=== PATIENT | female | born 1945 | race Caucasian/White ===

== ENCOUNTER → 2021-06-02 | Outpatient (CLI) | payer MEDICAID, MEDICARE ==
[~2021-06-02] MED LIST: FAMO40TA3 PO; HYDR12.55 PO; LISI20TA33 PO; METO100T5 PO; NORV5TAB PO; NOXI1TAB PO
== END ==
LOC: M WHC 13:51
PROVIDERS: ATTEND Family Medicine
DX: R92.2 Inconclusive mammogram (principal)
CPT/HCPCS: 76642; 77065; G0279

== ENCOUNTER → 2021-06-16 | Outpatient (CLI) | payer MEDICARE ==
[2021-06-16 15:55] VITALS: BP 132/68
--- NOTE | 2021-06-16 16:24 | REP ---
INDICATION: N64.89 LT BREAST DENSITY,POST US GUIDED BIOPSY. COMPARISON: Mammogram 05/13/2021, 06/02/2021, ultrasound 06/02/2021. TECHNIQUE: Following ultrasound-guided biopsy of a nodule in the left breast, mammographic images of the left breast are performed. FINDINGS: FINDINGS: At the site of the nodule in the inferolateral left breast there is focal air density and the biopsy is not currently visualized, indicating it has been essentially removed via the biopsy. The biopsy marking clip is seen more medially and slightly more posteriorly, approximately 4.6 cm from the biopsy site. IMPRESSION: Successful ultrasound-guided biopsy of nodule in the lateral left breast. The biopsy clip is deployed approximately 4.6 cm medial to the biopsy site. RECOMMENDATION: Clinical follow-up. <Electronically signed by Sherwin Garber > 06/16/21 [id number]
--- NOTE | 2021-06-16 17:19 | REP ---
INDICATION: N64.89 LT BREAST DENSITY,US GUIDED BIOPSY. COMPARISON: None. TECHNIQUE: The procedure was performed by YANCI Blackburn, under the direct supervision of Dr. Garber. The risks and benefits of the procedure were explained to the patient and an informed consent was obtained both verbally and written. Directly prior to the start of the procedure a formal time-out was completed in the procedure room. FINDINGS: Using ultrasound guidance the left breast breast nodule was localized. The skin was prepped and draped in a sterile fashion. Thirteen mL of buffered lidocaine was used as a local anesthetic. Using ultrasound guidance a 13 gauge vacuum assisted mammotome biopsy system was inserted and advanced into the left breast mass. Five core biopsy specimens were obtained and sent to pathology for further analysis. A shape 4 marker clip was placed at the biopsy site. The patient tolerated the procedure well and there were no immediate complications. After the appropriate amount of monitored convalescence the patient was discharged from the department. IMPRESSION: 1. Ultrasound-guided left breast biopsy and micro clip placement. <Electronically signed by Kayla Mccord > 06/16/21 [id number] <Electronically signed by Sherwin Garber > 06/16/21 [id number]
== END ==
LOC: M WHCPRO 06:31
PROVIDERS: ATTEND Family Medicine
DX: N63.21 Unspecified lump in the left breast, upper outer quadrant (principal)

== ENCOUNTER → 2023-01-26 | Outpatient (CLI) | payer OTHER ==
[~2023-01-26] MED LIST changes: +ALBU8.5H INH; +HOME MED LIST COMPLETE! XX SCH; +HYDR-3490 PO; +LIDOCAINE 1% MDV 20ML VIAL As Ordered ONE; +VITA30004 PO
[2023-01-26 09:00] LABS: MEAN CORPUSCULAR HEMOGLOBIN 28.2 pg (27.0-33.0); MEAN CORPUSCULAR HGB CONC 31.7 g/dl (32.0-36.5); MEAN CORPUSCULAR VOLUME 88.9 fl (80.0-96.0); PLATELET COUNT, AUTOMATED 251 10^3/uL (150-450); RED BLOOD COUNT 4.61 10^6/uL (4.00-5.40); WHITE BLOOD COUNT 12.9 10^3/uL (4.0-10.0)
[2023-01-26 09:30] LABS: INR 0.91; PROTHROMBIN TIME 12.4 SECONDS (12.5-14.5)
[2023-01-26 11:58] VITALS: BP 144/64
== END ==
LOC: M IRPRO 08:18
PROVIDERS: ATTEND Internal Medicine Pulmonary Disease
DX: C34.32 Malignant neoplasm of lower lobe, left bronchus or lung (principal)

== ENCOUNTER → 2023-02-09 | Outpatient (CLI) | payer OTHER ==
[~2023-02-09] MED LIST changes: +FLUT1BLS8; -HOME MED LIST COMPLETE! XX SCH; -LIDOCAINE 1% MDV 20ML VIAL As Ordered ONE; +LORA1TAB4 PO; +LORA2CON5 PO; +MEDR4PAK PO
== END ==
LOC: M ONCR 13:35
PROVIDERS: ATTEND General Practice
DX: C34.32 Malignant neoplasm of lower lobe, left bronchus or lung (principal); R91.8 Other nonspecific abnormal finding of lung field; J44.9 Chronic obstructive pulmonary disease, unspecified; I10 Essential (primary) hypertension; K21.9 Gastro-esophageal reflux disease without esophagitis; Z79.51 Long term (current) use of inhaled steroids; Z79.899 Other long term (current) drug therapy; Z80.1 Family history of malignant neoplasm of trachea, bronchus and lung; Z80.3 Family history of malignant neoplasm of breast; Z82.49 Family history of ischemic heart disease and other diseases of the circulatory system; Z87.891 Personal history of nicotine dependence; Z88.5 Allergy status to narcotic agent; Z98.51 Tubal ligation status

== ENCOUNTER → 2023-02-28 | Outpatient (CLI) | payer OTHER ==
[~2023-02-28] MED LIST changes: +LORA1TAB23 PO; -LORA1TAB4 PO; +PRED20TA PO
== END ==
LOC: M PLARAD 14:17
PROVIDERS: ATTEND Internal Medicine Pulmonary Disease
DX: C34.32 Malignant neoplasm of lower lobe, left bronchus or lung (principal)
CPT/HCPCS: 78815; A9552

== ENCOUNTER → 2023-03-02 | Outpatient (CLI) | payer OTHER | LOC: M ONCR 12:55 | PROVIDERS: ATTEND General Practice | DX: C34.32 Malignant neoplasm of lower lobe, left bronchus or lung (principal); C34.31 Malignant neoplasm of lower lobe, right bronchus or lung ==

== ENCOUNTER → 2023-03-07 | Outpatient (CLI) | payer OTHER ==
[~2023-03-07] MED LIST changes: +PROHANCE 279.3MG/ML 5ML VIAL ONE
== END ==
LOC: M PLAIMG 09:31
PROVIDERS: ATTEND Internal Medicine Medical Oncology
DX: C34.90 Malignant neoplasm of unspecified part of unspecified bronchus or lung (principal)
CPT/HCPCS: 70553; A9576

== ENCOUNTER 2023-03-10 10:28 | Outpatient (RCR) | payer MEDICARE, OTHER ==
[~2023-03-10 10:28] MED LIST changes: -PROHANCE 279.3MG/ML 5ML VIAL ONE
[2023-03-10] MEDS ORDERED: BENZ200C70 PO (10:48)
[2023-03-11] MEDS ORDERED: GUAI400T9 PO (13:40)
[2023-03-30] MEDS ORDERED: MAGN400T2 PO (09:44)
== END 2023-03-30 ==
LOC: M ONCR 10:28
PROVIDERS: ATTEND General Practice
DX: C34.32 Malignant neoplasm of lower lobe, left bronchus or lung (principal)

== ENCOUNTER → 2023-03-24 | Outpatient (CLI) | payer OTHER ==
[~2023-03-24] MED LIST changes: +ATROPINE SULF 1MG/10ML SYRINGE As Ordered ONE; +BENZ200C70 PO; +GUAI400T9 PO; +LIDOCAINE 1% MDV 20ML VIAL As Ordered ONE; +MIDAZOLAM INJ 2MG/2ML VIAL As Ordered ONE; +NS 1,000 ML IV SCH; +ceFAZolin 2 GM/D5W 50 ML IV BAG As Ordered ONE; +ceFAZolin SOD 2 GM in IV 1 EA IV ONE; +diphenhydrAMINE 50MG/ML VIAL As Ordered ONE; +fentaNYL 100 MCG/2 ML INJECTION As Ordered ONE
[2023-03-24 15:00] VITALS: BP 137/60
== END ==
LOC: M IRPRO 10:25
PROVIDERS: ATTEND Internal Medicine Medical Oncology
DX: C34.90 Malignant neoplasm of unspecified part of unspecified bronchus or lung (principal)
CPT/HCPCS: 36561; 99152; 99153; C1769; C1788; C1894; J0690; J2250; J3010

== ENCOUNTER 2023-04-04 13:48 | Inpatient (IN) | payer MEDICARE, OTHER ==
[~2023-04-04] VITALS: Ht 152.4 cm; Wt 90.2 kg
[~2023-04-04 13:48] MED LIST changes: -ATROPINE SULF 1MG/10ML SYRINGE As Ordered ONE; -LIDOCAINE 1% MDV 20ML VIAL As Ordered ONE; +MAGN400T2 PO; -MIDAZOLAM INJ 2MG/2ML VIAL As Ordered ONE; -NS 1,000 ML IV SCH; -ceFAZolin 2 GM/D5W 50 ML IV BAG As Ordered ONE; -ceFAZolin SOD 2 GM in IV 1 EA IV ONE; -diphenhydrAMINE 50MG/ML VIAL As Ordered ONE; -fentaNYL 100 MCG/2 ML INJECTION As Ordered ONE
[2023-04-04 14:46] LABS: BASO # 0.1 10^3/uL (0.0-0.2); BASO % 0.9 % (0.0-1.0); EOS % 0.3 % (0.0-3.0); HEMATOCRIT 35.6 % (36.0-47.0); HEMOGLOBIN 11.7 g/dl (12.0-15.5); LYMPH # 1.3 10^3/uL (1.5-5.0); LYMPH % 10.1 % (24.0-44.0); MEAN CORPUSCULAR HEMOGLOBIN 27.4 pg (27.0-33.0); MEAN CORPUSCULAR HGB CONC 32.9 g/dl (32.0-36.5); MEAN CORPUSCULAR VOLUME 83.4 fl (80.0-96.0); MONO % 0.2 % (2.0-8.0); NEUTROPHILS # 10.8 10^3/uL (1.5-8.5); PLATELET COUNT, AUTOMATED 162 10^3/uL (150-450); RED BLOOD COUNT 4.27 10^6/uL (4.00-5.40); WHITE BLOOD COUNT 12.8 10^3/uL (4.0-10.0)
[2023-04-04 15:13] LABS: ALBUMIN 2.1 G/DL (3.2-5.2); BILIRUBIN,DIRECT 0.5 MG/DL (<0.4); BILIRUBIN,TOTAL 1.1 MG/DL (0.3-1.2); CALCIUM LEVEL 7.3 MG/DL (8.3-10.6); CREATININE FOR GFR 1.33 MG/DL (0.55-1.30); GLOMERULAR FILTRATION RATE 41.1 (>39); MAGNESIUM LEVEL 1.1 MG/DL (1.8-2.4); POTASSIUM SERUM 3.9 MMOL/L (3.5-5.1); TOTAL PROTEIN 4.8 G/DL (5.7-8.2)
[2023-04-04 15:15] LABS: THYROID STIMULATING HORMONE 5.954 uIU/ML (0.55-4.78)
[2023-04-04] MEDS ORDERED: NS 500 ML IV ONE ×2 (15:15→22:45)
[2023-04-04 15:16] LABS: MB/CK RELATIVE INDEX 3.33 (< OR =4)
[2023-04-04] MEDS: METOPROLOL 5 MG/5 ML VIAL IV SCH ×5 (15:17→19:00)
[2023-04-04 15:42] LABS: RSV AMPLIFICATION NEGATIVE (NEGATIVE)
[2023-04-04] MEDS ORDERED: NS 1,900 ML in IV 1 EA IV ONE (15:55)
[2023-04-04] MEDS ORDERED: ISOVUE-370 76% 100ML VIAL As Ordered ONE (16:01)
[2023-04-04] MEDS: MAG SULF 1GM/100ML (MAG RUN) 1 GM in IV 1 EA IV SCH ×3 (16:31→18:28)
[2023-04-04] MEDS ORDERED: PIPERACILLIN/TAZOBACTAM SOD 4.5 GM in D5W MINI-BAG PLUS 50 ML IV ONE (17:00)
[2023-04-04] MEDS ORDERED: PANTOPRAZOLE 40MG VIAL IV ONE (17:40)
[2023-04-04] MEDS: fentaNYL 100 MCG/2 ML INJECTION IV PRN ×2 (17:45→20:01)
[2023-04-04] MEDS ORDERED: DIGOXIN INJ 0.5 MG/2 ML AMP IV ONE (19:05)
[2023-04-04] MEDS ORDERED: MAGN400T33 PO (21:14)
[2023-04-04] MEDS ORDERED: FLUT1BLS8 INH (21:14)
[2023-04-04] MEDS ORDERED: PRED20TA PO (21:14)
[2023-04-04] MEDS ORDERED: HOME MED LIST COMPLETE! XX SCH (21:15)
[2023-04-04 21:30] VITALS: BP 125/72; TEMP 97.6; O2SAT 95
[2023-04-04] MEDS ORDERED: METOCLOPRAMIDE INJ 10MG/2ML VIAL IV ONE (21:45)
[2023-04-04] MEDS ORDERED: dilTIAZem 25MG/5ML VIAL IV ONE (21:45)
[2023-04-04] MEDS ORDERED: HYDROMORPHONE HCL 0.5 MG/ 0.5 ML SYRINGE IV PRN (21:45)
[2023-04-04] MEDS: NS 1,000 ML IV SCH (22:04)
[2023-04-04] MEDS: metroNIDAZOLE 500 MG in IV 1 EA IV SCH (22:08)
[2023-04-04 22:13] LABS: PROTHROMBIN TIME 13.4 SECONDS (12.5-14.5)
[2023-04-04 22:14] LABS: PARTIAL THROMBOPLASTIN TIME 25.8 SECONDS (24.8-34.2)
[2023-04-04] MEDS ORDERED: diltiaZEM 125 MG in NS 100 ML IV SCH (22:15)
[2023-04-04 22:27] LABS: CK-MB VALUE MASS 3.1 NG/ML (<3.6)
[2023-04-04 22:28] LABS: MB/CK RELATIVE INDEX 11.07 (< OR =4)
[2023-04-04] MEDS ORDERED: ALBUTEROL 90 MCG/ACT 8GM HFA INHALER INH PRN (22:40)
[2023-04-04] MEDS: cefTRIAXone SOD 1 GM in D5W MINI-BAG PLUS 50 ML IV SCH (23:53)
[2023-04-05] VITALS (14 sets, daily range): BP systolic 104–142; BP diastolic 53–78; TEMP 96.5–98.9; O2SAT 90–95
[2023-04-05] MEDS: IPRATROPIUM 0.5MG/ALBUTEROL 2.5MG INH SOL UD 3ML (DUONEB) NEB SCH ×4 (01:03→19:00)
[2023-04-05] MEDS ORDERED: diltiaZEM 125 MG in NS 100 ML IV SCH ×2 (04:45→05:05)
[2023-04-05] MEDS: NS 1,000 ML IV SCH ×2 (04:49→18:18)
[2023-04-05] MEDS: diltiaZEM 125 MG in NS 100 ML IV SCH ×2 (05:00→08:17)
[2023-04-05] MEDS ORDERED: DIGOXIN INJ 0.5 MG/2 ML AMP IV ONE (05:20)
[2023-04-05] MEDS: metroNIDAZOLE 500 MG in IV 1 EA IV SCH ×3 (05:37→21:59)
[2023-04-05 05:43] LABS: CALCIUM LEVEL 7.1 MG/DL (8.3-10.6); CREATININE FOR GFR 1.07 MG/DL (0.55-1.30); GLOMERULAR FILTRATION RATE 52.8 (>39); POTASSIUM SERUM 3.9 MMOL/L (3.5-5.1)
[2023-04-05 07:39] LABS: MAGNESIUM LEVEL 1.6 MG/DL (1.8-2.4)
[2023-04-05 07:44] LABS: FREE T4 1.17 NG/DL (0.89-1.76)
[2023-04-05] MEDS ORDERED: NS 1,000 ML IV ONE (08:00)
[2023-04-05] MEDS: MAG SULF 1GM/100ML (MAG RUN) 1 GM in IV 1 EA IV SCH ×2 (08:05→09:56)
[2023-04-05 08:20] LABS: HEMATOCRIT 31.6 % (36.0-47.0); HEMOGLOBIN 10.3 g/dl (12.0-15.5)
[2023-04-05] MEDS ORDERED: methylPREDNISolone 40MG 1ML VIAL IV SCH (09:00)
[2023-04-05] MEDS: METOPROLOL TART 50 MG TAB PO SCH ×2 (10:08→20:18)
[2023-04-05] MEDS: BENZONATATE 100MG CAPSULE PO SCH ×3 (12:11→20:18)
[2023-04-05] MEDS ORDERED: DIGOXIN 0.25 MG TAB PO ONE (12:20)
[2023-04-05 14:02] LABS: C REACTIVE PROTEIN QUANTITATIV 10.7 MG/DL (<1.0)
[2023-04-05 14:15] LABS: HEMATOCRIT 32.8 % (36.0-47.0); HEMOGLOBIN 10.8 g/dl (12.0-15.5)
[2023-04-05] MEDS ORDERED: DIGOXIN INJ 0.5 MG/2 ML AMP IV STA (18:11)
[2023-04-05] MEDS ORDERED: MOM 30ML SUSPENSION UDC PO ONE (18:25)
[2023-04-05 18:58] LABS: ALBUMIN 2.2 G/DL (3.2-5.2); BILIRUBIN,TOTAL 0.6 MG/DL (0.3-1.2); CALCIUM LEVEL 7.7 MG/DL (8.3-10.6); CREATININE FOR GFR 1.13 MG/DL (0.55-1.30); GLOMERULAR FILTRATION RATE 49.6 (>39); POTASSIUM SERUM 4.2 MMOL/L (3.5-5.1); TOTAL PROTEIN 5.1 G/DL (5.7-8.2)
[2023-04-05] MEDS ORDERED: POLYETHYLENE GLYCOL (MIRALAX) 238GM BOTTLE PO ONE (19:00)
[2023-04-05 20:12] LABS: HEMATOCRIT 29.5 % (36.0-47.0); HEMOGLOBIN 9.7 g/dl (12.0-15.5)
[2023-04-05] MEDS ORDERED: METOPROLOL TARTRATE 100MG TAB PO SCH (21:00)
[2023-04-05] MEDS: cefTRIAXone SOD 1 GM in D5W MINI-BAG PLUS 50 ML IV SCH (23:25)
[2023-04-06] VITALS (11 sets, daily range): BP systolic 124–154; BP diastolic 58–93; TEMP 96.8–97.4; O2SAT 94–97
[2023-04-06] MEDS: IPRATROPIUM 0.5MG/ALBUTEROL 2.5MG INH SOL UD 3ML (DUONEB) NEB SCH ×2 (00:13→08:12)
[2023-04-06] MEDS: NS 1,000 ML IV SCH ×2 (04:45→14:44)
[2023-04-06] MEDS: POLYETHYLENE GLYCOL (MIRALAX) 238GM BOTTLE PO ONE ×2 (05:31→06:04)
[2023-04-06] MEDS: metroNIDAZOLE 500 MG in IV 1 EA IV SCH (05:32)
[2023-04-06 06:41] LABS: HEMATOCRIT 28.2 % (36.0-47.0); HEMOGLOBIN 9.3 g/dl (12.0-15.5); MEAN CORPUSCULAR HEMOGLOBIN 27.4 pg (27.0-33.0); MEAN CORPUSCULAR VOLUME 83.2 fl (80.0-96.0); PLATELET COUNT, AUTOMATED 108 10^3/uL (150-450); RED BLOOD COUNT 3.39 10^6/uL (4.00-5.40); WHITE BLOOD COUNT 2.8 10^3/uL (4.0-10.0)
[2023-04-06] MEDS: BENZONATATE 100MG CAPSULE PO SCH ×3 (08:31→20:56)
[2023-04-06] MEDS: METOPROLOL TART 50 MG TAB PO SCH ×3 (08:32→18:51)
[2023-04-06] MEDS: DIGOXIN 0.125 MG TAB PO SCH (08:32)
[2023-04-06] MEDS: predniSONE 20 MG TAB PO SCH (08:32)
[2023-04-06] MEDS ORDERED: METOPROLOL 5 MG/5 ML VIAL IV STA (08:37)
[2023-04-06] MEDS ORDERED: DIGOXIN 0.25 MG TAB PO SCH (09:00)
[2023-04-06] MEDS ORDERED: IPRATROPIUM 0.5MG/ALBUTEROL 2.5MG INH SOL UD 3ML (DUONEB) NEB PRN (10:00)
[2023-04-06 10:08] LABS: HEMATOCRIT 28.8 % (36.0-47.0); HEMOGLOBIN 9.3 g/dl (12.0-15.5); MEAN CORPUSCULAR HEMOGLOBIN 27.7 pg (27.0-33.0); MEAN CORPUSCULAR HGB CONC 32.3 g/dl (32.0-36.5); MEAN CORPUSCULAR VOLUME 85.7 fl (80.0-96.0); RED BLOOD COUNT 3.36 10^6/uL (4.00-5.40)
[2023-04-06 11:11] LABS: ATYPICAL LYMPH 2 % (0-5); BASOPHILS 1 % (0-1); EOSINOPHILS 3 % (0-3); LYMPHOCYTES 30 % (16-44); MONOCYTES 2 % (0-5); NEUTROPHILS 61 % (28-66); PLATELET ESTIMATE DECREASED (NORMAL)
[2023-04-06 11:12] LABS: HYPOCHROMASIA 1+; OVALOCYTES 1+; POIKILOCYTOSIS 1+
[2023-04-06 11:15] LABS: PLATELET COUNT, AUTOMATED 87 10^3/uL (150-450)
[2023-04-06] MEDS ORDERED: propofoL 200 MG/20 ML VIAL As Ordered ONE (17:54)
[2023-04-06] MEDS ORDERED: LIDOCAINE 2% 100MG/5ML SDV (FOR ANES.) As Ordered ONE (17:54)
[2023-04-06] MEDS ORDERED: PHENYLephrine 500MCG 5ML (100MCG/ML) SYRINGE As Ordered ONE (17:54)
[2023-04-06] MEDS ORDERED: ONDANSETRON 4MG 2ML VIAL IV PRN (18:15)
[2023-04-06] MEDS ORDERED: LR 1,000 ML IV SCH (18:15)
[2023-04-06 22:13] LABS: HEMATOCRIT 26.9 % (36.0-47.0); HEMOGLOBIN 8.9 g/dl (12.0-15.5)
[2023-04-07] MEDS: NS 1,000 ML IV SCH ×2 (00:34→09:05)
[2023-04-07] MEDS: METOPROLOL TART 50 MG TAB PO SCH ×3 (00:35→20:30)
[2023-04-07 04:00] VITALS: BP 124/72; TEMP 97.2; O2SAT 96
[2023-04-07 04:03] LABS: HEMATOCRIT 26.1 % (36.0-47.0); HEMOGLOBIN 8.5 g/dl (12.0-15.5)
[2023-04-07 07:18] LABS: BLOOD UREA NITROGEN 18 MG/DL (9-23); CALCIUM LEVEL 7.2 MG/DL (8.3-10.6); CARBON DIOXIDE LEVEL 25 MMOL/L (20-31); CHLORIDE LEVEL 103 MMOL/L (98-107); CREATININE FOR GFR 0.93 MG/DL (0.55-1.30); GLOMERULAR FILTRATION RATE > 60.0 (>39); GLUCOSE, FASTING 73 MG/DL (74-106); MAGNESIUM LEVEL 1.6 MG/DL (1.8-2.4); POTASSIUM SERUM 3.8 MMOL/L (3.5-5.1); SODIUM LEVEL 132 MMOL/L (136-145)
[2023-04-07 07:44] LABS: MEAN CORPUSCULAR HEMOGLOBIN 27.4 pg (27.0-33.0); MEAN CORPUSCULAR HGB CONC 32.2 g/dl (32.0-36.5); MEAN CORPUSCULAR VOLUME 85.2 fl (80.0-96.0); WHITE BLOOD COUNT 1.2 10^3/uL (4.0-10.0)
[2023-04-07 07:54] VITALS: BP 118/74; TEMP 97.3; O2SAT 96
[2023-04-07] MEDS: predniSONE 20 MG TAB PO SCH (09:04)
[2023-04-07] MEDS: BENZONATATE 100MG CAPSULE PO SCH ×3 (09:04→20:30)
[2023-04-07] MEDS: DIGOXIN 0.125 MG TAB PO SCH (09:04)
[2023-04-07 09:05] LABS: PLATELET COUNT, AUTOMATED 88 10^3/uL (150-450)
[2023-04-07] MEDS: MAG SULF 1GM/100ML (MAG RUN) 1 GM in IV 1 EA IV SCH ×2 (09:05→10:45)
[2023-04-07 09:32] LABS: ATYPICAL LYMPH 3 % (0-5); EOSINOPHILS 2 % (0-3); LYMPHOCYTES 80 % (16-44); MONOCYTES 1 % (0-5); NEUTROPHILS 14 % (28-66)
[2023-04-07 09:33] LABS: PLATELET ESTIMATE DECREASED (NORMAL)
[2023-04-07 09:34] LABS: HYPOCHROMASIA 1+
[2023-04-07 09:35] LABS: ANISOCYTOSIS 1+; MICROCYTOSIS 1+
[2023-04-07] MEDS ORDERED: predniSONE 20 MG TAB PO ONE (10:30)
[2023-04-07] MEDS ORDERED: METOPROLOL TART 50 MG TAB PO ONE (10:30)
[2023-04-07] MEDS ORDERED: ELIQ5TAB PO (10:59)
[2023-04-07] MEDS ORDERED: DIGO0.123 PO (11:00)
[2023-04-07] MEDS ORDERED: MAG SULF 1GM/100ML (MAG RUN) 1 GM in IV 1 EA IV SCH (11:00)
[2023-04-07] MEDS ORDERED: LOPR1TAB6 PO (11:00)
[2023-04-07 12:00] VITALS: BP 127/56; TEMP 98.3; O2SAT 96
[2023-04-07] MEDS: APIXABAN 5 MG TAB (ELIQUIS) PO SCH ×2 (12:27→20:30)
[2023-04-07] MEDS: LevoFLOXacin 500 MG TABLET PO SCH (12:44)
[2023-04-07] MEDS: FILGRASTIM 480 MCG/0.8 ML SYRINGE **SC ADMINISTRATION ONLY SC SCH (14:27)
[2023-04-07 16:27] VITALS: BP 136/71; TEMP 97.7; O2SAT 90
[2023-04-07] MEDS ORDERED: MAG SULF 1GM/100ML (MAG RUN) 1 GM in IV 1 EA IV ONE (17:00)
[2023-04-07 17:03] LABS: HEMATOCRIT 27.2 % (36.0-47.0); HEMOGLOBIN 8.8 g/dl (12.0-15.5)
[2023-04-07 20:00] VITALS: BP 134/66; TEMP 96.6; O2SAT 95
[2023-04-08] VITALS: BP 120/68; TEMP 96.4; O2SAT 97
[2023-04-08 00:24] LABS: HEMATOCRIT 25.8 % (36.0-47.0); HEMOGLOBIN 8.4 g/dl (12.0-15.5)
[2023-04-08 04:00] VITALS: BP 121/75; TEMP 96.1; O2SAT 94
[2023-04-08] MEDS: LevoFLOXacin 500 MG TABLET PO SCH (05:06)
[2023-04-08 05:24] LABS: HEMATOCRIT 24.8 % (36.0-47.0); HEMOGLOBIN 8.1 g/dl (12.0-15.5); LYMPH # 0.5 10^3/uL (1.5-5.0); MEAN CORPUSCULAR HEMOGLOBIN 27.5 pg (27.0-33.0); MEAN CORPUSCULAR HGB CONC 32.7 g/dl (32.0-36.5); MEAN CORPUSCULAR VOLUME 84.1 fl (80.0-96.0); RED BLOOD COUNT 2.95 10^6/uL (4.00-5.40)
[2023-04-08 05:29] LABS: PLATELET COUNT, AUTOMATED 56 10^3/uL (150-450); WHITE BLOOD COUNT 0.5 10^3/uL (4.0-10.0)
[2023-04-08 05:47] LABS: BLOOD UREA NITROGEN 16 MG/DL (9-23); CARBON DIOXIDE LEVEL 25 MMOL/L (20-31); CHLORIDE LEVEL 101 MMOL/L (98-107); CREATININE FOR GFR 0.92 MG/DL (0.55-1.30); GLOMERULAR FILTRATION RATE > 60.0 (>39); GLUCOSE, FASTING 79 MG/DL (74-106); MAGNESIUM LEVEL 1.8 MG/DL (1.8-2.4); POTASSIUM SERUM 3.6 MMOL/L (3.5-5.1); SODIUM LEVEL 134 MMOL/L (136-145)
[2023-04-08] MEDS ORDERED: LevoFLOXacin 250 MG TABLET PO SCH (06:00)
[2023-04-08 07:43] VITALS: BP 136/63; TEMP 97.1; O2SAT 93
[2023-04-08 08:05] LABS: HEMATOCRIT 25.3 % (36.0-47.0); HEMOGLOBIN 8.3 g/dl (12.0-15.5)
[2023-04-08] MEDS: BENZONATATE 100MG CAPSULE PO SCH ×3 (08:39→21:37)
[2023-04-08] MEDS: predniSONE 20 MG TAB PO SCH (08:39)
[2023-04-08] MEDS: APIXABAN 5 MG TAB (ELIQUIS) PO SCH ×2 (08:39→21:37)
[2023-04-08] MEDS: METOPROLOL TART 50 MG TAB PO SCH ×2 (08:40→21:38)
[2023-04-08] MEDS: DIGOXIN 0.125 MG TAB PO SCH (08:40)
[2023-04-08] MEDS: FILGRASTIM 480 MCG/0.8 ML SYRINGE **SC ADMINISTRATION ONLY SC SCH (10:21)
[2023-04-08] MEDS ORDERED: MAG SULF 1GM/100ML (MAG RUN) 1 GM in IV 1 EA IV ONE (11:00)
[2023-04-08 11:24] VITALS: BP 114/70; TEMP 97.5; O2SAT 95
[2023-04-08] MEDS: MAGNESIUM OXIDE 400MG TAB (MAG-OX) PO SCH ×2 (14:20→21:37)
[2023-04-08 15:17] VITALS: BP 140/75; TEMP 97.4; O2SAT 96
[2023-04-08 19:58] VITALS: BP 118/57; TEMP 97.2; O2SAT 96
[2023-04-09] VITALS (16 sets, daily range): BP systolic 108–170; BP diastolic 57–90; TEMP 96.2–97.2; O2SAT 91–97
[2023-04-09 05:37] LABS: EOS % 1.7 % (0.0-3.0); HEMATOCRIT 25.1 % (36.0-47.0); LYMPH # 0.6 10^3/uL (1.5-5.0); LYMPH % 93.2 % (24.0-44.0); MEAN CORPUSCULAR HEMOGLOBIN 26.9 pg (27.0-33.0); MEAN CORPUSCULAR HGB CONC 31.9 g/dl (32.0-36.5); MEAN CORPUSCULAR VOLUME 84.5 fl (80.0-96.0); MONO % 5.1 % (2.0-8.0); RED BLOOD COUNT 2.97 10^6/uL (4.00-5.40)
[2023-04-09 05:43] LABS: PLATELET COUNT, AUTOMATED 38 10^3/uL (150-450); WHITE BLOOD COUNT 0.6 10^3/uL (4.0-10.0)
[2023-04-09 05:52] LABS: CALCIUM LEVEL 7.4 MG/DL (8.3-10.6); CREATININE FOR GFR 0.98 MG/DL (0.55-1.30); GLOMERULAR FILTRATION RATE 58.4 (>39); MAGNESIUM LEVEL 1.3 MG/DL (1.8-2.4); POTASSIUM SERUM 3.8 MMOL/L (3.5-5.1)
[2023-04-09] MEDS: LevoFLOXacin 250 MG TABLET PO SCH (06:21)
[2023-04-09] MEDS ORDERED: MAGNESIUM OXIDE 400MG TAB (MAG-OX) PO ONE (09:00)
[2023-04-09] MEDS: METOPROLOL TART 50 MG TAB PO SCH ×2 (09:18→21:02)
[2023-04-09] MEDS: predniSONE 20 MG TAB PO SCH (09:18)
[2023-04-09] MEDS: BENZONATATE 100MG CAPSULE PO SCH ×3 (09:19→21:03)
[2023-04-09] MEDS: DIGOXIN 0.125 MG TAB PO SCH (09:19)
[2023-04-09] MEDS ORDERED: DIGOXIN 0.125 MG TAB PO ONE (10:34)
[2023-04-09] MEDS: FILGRASTIM 480 MCG/0.8 ML SYRINGE **SC ADMINISTRATION ONLY SC SCH (12:15)
[2023-04-09] MEDS: MAG SULF 1GM/100ML (MAG RUN) 1 GM in IV 1 EA IV SCH ×3 (14:29→17:07)
[2023-04-10 00:27] VITALS: BP 137/63; TEMP 96.6; O2SAT 93
[2023-04-10] MEDS: MAG SULF 1GM/100ML (MAG RUN) 1 GM in IV 1 EA IV SCH (01:00)
[2023-04-10] MEDS ORDERED: MAG SULF 1GM/100ML (MAG RUN) 1 GM in IV 1 EA IV SCH (01:00)
[2023-04-10 02:40] LABS: HEMATOCRIT 28.4 % (36.0-47.0); HEMOGLOBIN 9.6 g/dl (12.0-15.5); LYMPH # 0.4 10^3/uL (1.5-5.0); LYMPH % 84.3 % (24.0-44.0); MEAN CORPUSCULAR HEMOGLOBIN 28.1 pg (27.0-33.0); MEAN CORPUSCULAR HGB CONC 33.8 g/dl (32.0-36.5); MONO # 0.1 10^3/uL (0.0-0.8); MONO % 13.7 % (2.0-8.0); RED BLOOD COUNT 3.42 10^6/uL (4.00-5.40)
[2023-04-10 02:42] LABS: PLATELET COUNT, AUTOMATED 61 10^3/uL (150-450); WHITE BLOOD COUNT 0.5 10^3/uL (4.0-10.0)
[2023-04-10 04:31] VITALS: BP 130/59; TEMP 96.4; O2SAT 92
[2023-04-10 05:36] LABS: HEMATOCRIT 29.3 % (36.0-47.0); HEMOGLOBIN 9.7 g/dl (12.0-15.5); LYMPH # 0.5 10^3/uL (1.5-5.0); LYMPH % 80.3 % (24.0-44.0); MEAN CORPUSCULAR HEMOGLOBIN 27.5 pg (27.0-33.0); MEAN CORPUSCULAR HGB CONC 33.1 g/dl (32.0-36.5); MONO # 0.1 10^3/uL (0.0-0.8); MONO % 14.8 % (2.0-8.0); NEUTROPHILS % 3.3 % (36.0-66.0); RED BLOOD COUNT 3.53 10^6/uL (4.00-5.40); WHITE BLOOD COUNT 0.6 10^3/uL (4.0-10.0)
[2023-04-10 05:37] LABS: PLATELET COUNT, AUTOMATED 58 10^3/uL (150-450)
[2023-04-10] MEDS: LevoFLOXacin 250 MG TABLET PO SCH (05:48)
[2023-04-10 05:59] LABS: CALCIUM LEVEL 8.4 MG/DL (8.3-10.6); CREATININE FOR GFR 0.98 MG/DL (0.55-1.30); GLOMERULAR FILTRATION RATE 58.4 (>39); POTASSIUM SERUM 3.8 MMOL/L (3.5-5.1)
[2023-04-10] MEDS ORDERED: MAGNESIUM OXIDE 400MG TAB (MAG-OX) PO SCH (06:00)
[2023-04-10 07:51] VITALS: BP 134/76; TEMP 97.9; O2SAT 91
[2023-04-10 08:32] VITALS: BP 134/76
[2023-04-10] MEDS: METOPROLOL TART 50 MG TAB PO SCH (08:32)
[2023-04-10] MEDS: BENZONATATE 100MG CAPSULE PO SCH (08:32)
[2023-04-10] MEDS ORDERED: DIGOXIN 0.25 MG TAB PO SCH (09:00)
[2023-04-10] MEDS ORDERED: DIGOXIN 0.125 MG TAB PO SCH (09:00)
[2023-04-10] MEDS ORDERED: DIGO0.253 PO (09:15)
[2023-04-10] MEDS ORDERED: FILG48VL SC (09:19)
[2023-04-10] MEDS ORDERED: LEVO1TAB38 PO (09:21)
[2023-04-10] MEDS: FILGRASTIM 480 MCG/0.8 ML SYRINGE **SC ADMINISTRATION ONLY SC SCH (10:29)
[2023-04-10] MEDS ORDERED: METOPROLOL TARTRATE 100MG TAB PO SCH (21:00)
[2023-04-13] MEDS ORDERED: ONDA4TAB6 PO (13:39)
[2023-04-18] MEDS ORDERED: LIDO1CRE42 TOP (13:37)
[2023-04-26] MEDS ORDERED: MAGN400T33 PO (10:29)
== END 2023-04-10 12:03 | disposition home health service (06) | DRG 393 ==
LOC: M ED 13:48 → M ED INP 20:14 → M ICU 21:17 → M PCU 04-05 22:21
PROVIDERS: ADMIT Internal Medicine; ATTEND Internal Medicine
PROC: 0DBN8ZX Excision of Sigmoid Colon, Via Natural or Artificial Opening Endoscopic, Diagnostic (ICD-10-PCS; 2023-04-06)
PROC: 30233R1 Transfusion of Nonautologous Platelets into Peripheral Vein, Percutaneous Approach (ICD-10-PCS; principal; 2023-04-09)
PROC: 30233N1 Transfusion of Nonautologous Red Blood Cells into Peripheral Vein, Percutaneous Approach (ICD-10-PCS; 2023-04-09)
DX: K55.9 Vascular disorder of intestine, unspecified (principal); D61.810 Antineoplastic chemotherapy induced pancytopenia; K92.1 Melena; C34.90 Malignant neoplasm of unspecified part of unspecified bronchus or lung; I24.8 Other forms of acute ischemic heart disease; E87.20 Acidosis, unspecified; E87.1 Hypo-osmolality and hyponatremia; D62 Acute posthemorrhagic anemia; I95.9 Hypotension, unspecified; I10 Essential (primary) hypertension; J44.9 Chronic obstructive pulmonary disease, unspecified; I48.91 Unspecified atrial fibrillation; Z66 Do not resuscitate; R55 Syncope and collapse; R00.0 Tachycardia, unspecified; E03.9 Hypothyroidism, unspecified; E83.42 Hypomagnesemia; E86.0 Dehydration; R74.01 Elevation of levels of liver transaminase levels; D70.9 Neutropenia, unspecified; Z92.21 Personal history of antineoplastic chemotherapy; D69.6 Thrombocytopenia, unspecified; Z88.5 Allergy status to narcotic agent; Z88.8 Allergy status to other drugs, medicaments and biological substances; Z79.899 Other long term (current) drug therapy; I27.20 Pulmonary hypertension, unspecified; K64.8 Other hemorrhoids; K57.30 Diverticulosis of large intestine without perforation or abscess without bleeding

== ENCOUNTER 2023-04-20 14:42 | Inpatient (IN) | payer OTHER ==
[~2023-04-20] VITALS: Ht 162.6 cm; Wt 84.2 kg
[~2023-04-20 14:42] MED LIST changes: +DIGO0.123 PO; +DIGO0.253 PO; +ELIQ5TAB PO; +FILG48VL SC; +FLUT1BLS8 INH; +LEVO1TAB38 PO; +LIDO1CRE42 TOP; +LOPR1TAB6 PO; +MAGN400T33 PO; +ONDA4TAB6 PO
[2023-04-20] MEDS ORDERED: MAG SULF 1GM/100ML (MAG RUN) 1 GM in IV 1 EA IV ONE (15:35)
[2023-04-20] MEDS ORDERED: ONDANSETRON 4MG 2ML VIAL IV ONE (16:30)
[2023-04-20] MEDS ORDERED: ISOVUE-370 76% 100ML VIAL As Ordered ONE (18:08)
[2023-04-20 21:40] LABS: ABG BASE EXCESS 6.2 (-2.0-2.0); ABG HCO3 29.3 MMOL/L (22.0-26.0); ABG O2 SATURATION 98.9 % (95.0-99.0); ABG PARTIAL PRESSURE CO2 37.1 mmHg (35.0-45.0); ABG PARTIAL PRESSURE O2 121.6 mmHg (75.0-100.0); ABG STANDARD HCO3 30.1 MMOL/L. (22.0-26.0); ABG TOTAL CO2 30.5 MMOL/L (23.0-31.0); ABG pH (ARTERIAL) 7.516 UNITS (7.350-7.450)
[2023-04-20] MEDS ORDERED: LevoFLOXacin IV 750 MG in IV 1 EA IV SCH (22:00)
[2023-04-20] MEDS ORDERED: ALBUTEROL SULFATE 2.5MG/0.5ML INH NEB SOLN NEB PRN (22:15)
[2023-04-20] MEDS ORDERED: NS 1,000 ML IV SCH (22:15)
[2023-04-20] MEDS ORDERED: HYDROMORPHONE HCL 0.5 MG/ 0.5 ML SYRINGE IV PRN (22:15)
[2023-04-20] MEDS ORDERED: ACETAMINOPHEN TAB 650MG DOSE (2X325MG) PO PRN (22:15)
[2023-04-20] MEDS ORDERED: METO50TA7 PO (22:42)
[2023-04-20] MEDS ORDERED: DIGO0.253 PO (22:42)
[2023-04-20] MEDS ORDERED: ELIQ5TAB PO (22:42)
[2023-04-20] MEDS ORDERED: HOME MED LIST COMPLETE! XX SCH (22:45)
[2023-04-20] MEDS ORDERED: ASPIRIN 81MG CHEW TABLET PO ONE (23:20)
[2023-04-21] VITALS (7 sets, daily range): BP systolic 90–115; BP diastolic 51–58; TEMP 96.3–98.4; O2SAT 90–94
[2023-04-21] MEDS: IPRATROPIUM 0.5MG/ALBUTEROL 2.5MG INH SOL UD 3ML (DUONEB) NEB SCH ×4 (02:00→18:09)
[2023-04-21 07:14] LABS: ALBUMIN 1.7 G/DL (3.2-5.2); BILIRUBIN,TOTAL 0.5 MG/DL (0.3-1.2); CALCIUM LEVEL 7.1 MG/DL (8.3-10.6); CREATININE FOR GFR 1.62 MG/DL (0.55-1.30); GLOMERULAR FILTRATION RATE 32.7 (>39); MAGNESIUM LEVEL 1.6 MG/DL (1.8-2.4); TOTAL PROTEIN 4.4 G/DL (5.7-8.2)
[2023-04-21] MEDS: ASPIRIN 81MG CHEW TABLET PEG SCH (08:45)
[2023-04-21] MEDS ORDERED: NS 1,000 ML IV ONE ×2 (09:00→15:55)
[2023-04-21] MEDS ORDERED: ALBUTEROL SULFATE 2.5MG/0.5ML INH NEB SOLN NEB PRN (10:45)
[2023-04-21] MEDS: MAG SULF 1GM/100ML (MAG RUN) 1 GM in IV 1 EA IV SCH ×2 (10:48→11:51)
[2023-04-21 11:30] LABS: PROCALCITONIN 0.31 ng/ml
[2023-04-21] MEDS: FAMOTIDINE 20 MG TAB PO SCH (11:50)
[2023-04-21] MEDS: DIGOXIN 0.25 MG TAB PO SCH (11:50)
[2023-04-21] MEDS: APIXABAN 5 MG TAB (ELIQUIS) PO SCH ×2 (11:50→21:09)
[2023-04-21] MEDS: SYMBICORT 160/4.5MCG INHALER 6GM INH SCH ×2 (12:06→18:10)
[2023-04-21] MEDS: TIOTROPIUM INHALER/CAPSULE (SPIRIVA) INH SCH (12:06)
[2023-04-22] VITALS (7 sets, daily range): BP systolic 94–114; BP diastolic 49–72; TEMP 96.7–98.9; O2SAT 30–96
[2023-04-22] MEDS: IPRATROPIUM 0.5MG/ALBUTEROL 2.5MG INH SOL UD 3ML (DUONEB) NEB SCH ×4 (00:35→19:36)
[2023-04-22 04:00] LABS: HEMATOCRIT 26.6 % (36.0-47.0); MEAN CORPUSCULAR HEMOGLOBIN 27.7 pg (27.0-33.0); MEAN CORPUSCULAR HGB CONC 32.3 g/dl (32.0-36.5); MEAN CORPUSCULAR VOLUME 85.8 fl (80.0-96.0); PLATELET COUNT, AUTOMATED 354 10^3/uL (150-450); WHITE BLOOD COUNT 18.9 10^3/uL (4.0-10.0)
[2023-04-22 04:20] LABS: CREATININE FOR GFR 1.41 MG/DL (0.55-1.30); GLOMERULAR FILTRATION RATE 38.4 (>39); POTASSIUM SERUM 4.1 MMOL/L (3.5-5.1)
[2023-04-22 04:50] LABS: HEMOGLOBIN 8.6 g/dl (12.0-15.5)
[2023-04-22 05:27] LABS: BASOPHILS 2 % (0-1); LYMPHOCYTES 1 % (16-44); MONOCYTES 3 % (0-5); NEUTROPHILS 90 % (28-66); PLATELET ESTIMATE NORMAL (NORMAL)
[2023-04-22 05:28] LABS: ANISOCYTOSIS 1+; HYPOCHROMASIA 1+; POLYCHROMASIA 1+
[2023-04-22] MEDS: TIOTROPIUM INHALER/CAPSULE (SPIRIVA) INH SCH (07:54)
[2023-04-22] MEDS: SYMBICORT 160/4.5MCG INHALER 6GM INH SCH ×2 (07:55→19:36)
[2023-04-22] MEDS: DIGOXIN 0.25 MG TAB PO SCH (08:29)
[2023-04-22] MEDS: ASPIRIN 81MG CHEW TABLET PEG SCH (08:29)
[2023-04-22] MEDS: APIXABAN 5 MG TAB (ELIQUIS) PO SCH ×2 (08:29→20:35)
[2023-04-22] MEDS: FAMOTIDINE 20 MG TAB PO SCH (08:29)
[2023-04-22] MEDS ORDERED: predniSONE 20 MG TAB PO SCH (09:00)
[2023-04-22] MEDS: guaiFENesin SYRUP 200MG 10ML UDC PO PRN ×2 (14:08→21:41)
[2023-04-22] MEDS: BENZONATATE 100MG CAPSULE PO PRN ×2 (14:08→22:31)
[2023-04-22] MEDS ORDERED: NS 1,000 ML IV ONE (19:30)
[2023-04-22] MEDS: LevoFLOXacin 750 MG TABLET PO SCH (21:41)
[2023-04-23] MEDS: IPRATROPIUM 0.5MG/ALBUTEROL 2.5MG INH SOL UD 3ML (DUONEB) NEB SCH ×4 (01:10→19:25)
[2023-04-23 03:05] VITALS: BP 109/53; TEMP 96.9; O2SAT 92
[2023-04-23 05:14] LABS: HEMATOCRIT 28.5 % (36.0-47.0); MEAN CORPUSCULAR HEMOGLOBIN 27.6 pg (27.0-33.0); MEAN CORPUSCULAR HGB CONC 31.6 g/dl (32.0-36.5); MEAN CORPUSCULAR VOLUME 87.4 fl (80.0-96.0); PLATELET COUNT, AUTOMATED 321 10^3/uL (150-450); RED BLOOD COUNT 3.26 10^6/uL (4.00-5.40); WHITE BLOOD COUNT 16.1 10^3/uL (4.0-10.0)
[2023-04-23 05:38] LABS: CALCIUM LEVEL 7.6 MG/DL (8.3-10.6); CREATININE FOR GFR 1.29 MG/DL (0.55-1.30); GLOMERULAR FILTRATION RATE 42.6 (>39); POTASSIUM SERUM 4.4 MMOL/L (3.5-5.1)
[2023-04-23 05:57] LABS: ANISOCYTOSIS 1+; LYMPHOCYTES 3 % (16-44); MONOCYTES 8 % (0-5); MYELOCYTES 6 % (0-0); NEUTROPHILS 80 % (28-66); PLATELET ESTIMATE NORMAL (NORMAL)
[2023-04-23 05:58] LABS: HYPOCHROMASIA 1+
[2023-04-23] MEDS: guaiFENesin SYRUP 200MG 10ML UDC PO PRN ×2 (06:46→18:03)
[2023-04-23] MEDS: SYMBICORT 160/4.5MCG INHALER 6GM INH SCH ×2 (07:28→19:25)
[2023-04-23] MEDS: TIOTROPIUM INHALER/CAPSULE (SPIRIVA) INH SCH (07:28)
[2023-04-23 07:57] VITALS: BP 116/57; TEMP 97.1; O2SAT 92
[2023-04-23] MEDS: FAMOTIDINE 20 MG TAB PO SCH (08:46)
[2023-04-23] MEDS: APIXABAN 5 MG TAB (ELIQUIS) PO SCH ×2 (08:46→20:31)
[2023-04-23] MEDS: ASPIRIN 81MG CHEW TABLET PEG SCH (08:46)
[2023-04-23 10:07] LABS: BASO # 0.2 10^3/uL (0.0-0.2); BASO % 0.9 % (0.0-1.0); EOS % 0.1 % (0.0-3.0); HEMATOCRIT 29.9 % (36.0-47.0); HEMOGLOBIN 9.6 g/dl (12.0-15.5); LYMPH # 0.5 10^3/uL (1.5-5.0); LYMPH % 2.7 % (24.0-44.0); MEAN CORPUSCULAR HEMOGLOBIN 27.8 pg (27.0-33.0); MEAN CORPUSCULAR HGB CONC 32.1 g/dl (32.0-36.5); MEAN CORPUSCULAR VOLUME 86.7 fl (80.0-96.0); MONO % 8.7 % (2.0-8.0); NEUTROPHILS % 83.7 % (36.0-66.0); PLATELET COUNT, AUTOMATED 375 10^3/uL (150-450); RED BLOOD COUNT 3.45 10^6/uL (4.00-5.40); WHITE BLOOD COUNT 17.9 10^3/uL (4.0-10.0)
[2023-04-23 10:30] LABS: MAGNESIUM LEVEL 1.6 MG/DL (1.8-2.4)
[2023-04-23 10:32] LABS: C REACTIVE PROTEIN QUANTITATIV 9.6 MG/DL (<1.0); CALCIUM LEVEL 7.5 MG/DL (8.3-10.6); CREATININE FOR GFR 1.23 MG/DL (0.55-1.30); POTASSIUM SERUM 4.5 MMOL/L (3.5-5.1)
[2023-04-23 10:36] LABS: MONO # 1.6 10^3/uL (0.0-0.8)
[2023-04-23 10:39] LABS: PROCALCITONIN 0.2 ng/ml
[2023-04-23 12:14] VITALS: BP 118/57; TEMP 96.8; O2SAT 92
[2023-04-23] MEDS: BENZONATATE 100MG CAPSULE PO PRN (18:03)
[2023-04-23 19:31] VITALS: BP 113/60; TEMP 97.4; O2SAT 92
[2023-04-24] MEDS: IPRATROPIUM 0.5MG/ALBUTEROL 2.5MG INH SOL UD 3ML (DUONEB) NEB SCH ×4 (02:02→19:12)
[2023-04-24 03:58] VITALS: BP 115/58; TEMP 97.1; O2SAT 94
[2023-04-24 06:24] LABS: BASO # 0.1 10^3/uL (0.0-0.2); BASO % 0.8 % (0.0-1.0); EOS % 0.2 % (0.0-3.0); HEMATOCRIT 29.8 % (36.0-47.0); HEMOGLOBIN 9.5 g/dl (12.0-15.5); LYMPH # 0.7 10^3/uL (1.5-5.0); LYMPH % 5.5 % (24.0-44.0); MEAN CORPUSCULAR HEMOGLOBIN 27.9 pg (27.0-33.0); MEAN CORPUSCULAR HGB CONC 31.9 g/dl (32.0-36.5); MEAN CORPUSCULAR VOLUME 87.4 fl (80.0-96.0); MONO # 1.2 10^3/uL (0.0-0.8); MONO % 9.1 % (2.0-8.0); NEUTROPHILS # 10.8 10^3/uL (1.5-8.5); NEUTROPHILS % 80.1 % (36.0-66.0); PLATELET COUNT, AUTOMATED 330 10^3/uL (150-450); RED BLOOD COUNT 3.41 10^6/uL (4.00-5.40); WHITE BLOOD COUNT 13.5 10^3/uL (4.0-10.0)
[2023-04-24] MEDS: guaiFENesin SYRUP 200MG 10ML UDC PO PRN ×2 (06:40→21:14)
[2023-04-24] MEDS: BENZONATATE 100MG CAPSULE PO PRN (06:40)
[2023-04-24 06:55] LABS: CALCIUM LEVEL 7.8 MG/DL (8.3-10.6); CREATININE FOR GFR 1.1 MG/DL (0.55-1.30); GLOMERULAR FILTRATION RATE 51.1 (>39); POTASSIUM SERUM 4.2 MMOL/L (3.5-5.1)
[2023-04-24] MEDS: SYMBICORT 160/4.5MCG INHALER 6GM INH SCH ×2 (07:47→19:12)
[2023-04-24] MEDS: TIOTROPIUM INHALER/CAPSULE (SPIRIVA) INH SCH (07:47)
[2023-04-24 08:10] VITALS: BP 105/61; TEMP 96.2; O2SAT 94
[2023-04-24] MEDS: APIXABAN 5 MG TAB (ELIQUIS) PO SCH ×2 (08:30→21:14)
[2023-04-24] MEDS: FAMOTIDINE 20 MG TAB PO SCH (08:30)
[2023-04-24] MEDS: ASPIRIN 81MG CHEW TABLET PEG SCH (08:30)
[2023-04-24 09:46] LABS: DIGOXIN LEVEL 2.9 NG/ML (0.8-2.0)
[2023-04-24 12:46] VITALS: BP 102/57; TEMP 96.8; O2SAT 97
[2023-04-24 20:00] VITALS: BP 114/57; TEMP 98.5; O2SAT 93
[2023-04-24] MEDS: LevoFLOXacin 750 MG TABLET PO SCH (21:13)
[2023-04-25] MEDS: IPRATROPIUM 0.5MG/ALBUTEROL 2.5MG INH SOL UD 3ML (DUONEB) NEB SCH ×2 (01:20→07:05)
[2023-04-25 03:43] VITALS: BP 111/56; TEMP 96.7; O2SAT 96
[2023-04-25 06:00] LABS: BASO # 0.1 10^3/uL (0.0-0.2); EOS % 0.3 % (0.0-3.0); HEMATOCRIT 27.8 % (36.0-47.0); HEMOGLOBIN 8.9 g/dl (12.0-15.5); LYMPH # 0.6 10^3/uL (1.5-5.0); MEAN CORPUSCULAR HEMOGLOBIN 27.9 pg (27.0-33.0); MEAN CORPUSCULAR VOLUME 87.1 fl (80.0-96.0); MONO # 1.1 10^3/uL (0.0-0.8); MONO % 10.8 % (2.0-8.0); NEUTROPHILS % 77.4 % (36.0-66.0); PLATELET COUNT, AUTOMATED 318 10^3/uL (150-450); RED BLOOD COUNT 3.19 10^6/uL (4.00-5.40); WHITE BLOOD COUNT 10.3 10^3/uL (4.0-10.0)
[2023-04-25 06:10] LABS: CREATININE FOR GFR 1.09 MG/DL (0.55-1.30); DIGOXIN LEVEL 2.3 NG/ML (0.8-2.0); GLOMERULAR FILTRATION RATE 51.7 (>39); POTASSIUM SERUM 4.7 MMOL/L (3.5-5.1)
[2023-04-25] MEDS: guaiFENesin SYRUP 200MG 10ML UDC PO PRN (06:48)
[2023-04-25] MEDS: SYMBICORT 160/4.5MCG INHALER 6GM INH SCH (07:05)
[2023-04-25] MEDS: TIOTROPIUM INHALER/CAPSULE (SPIRIVA) INH SCH (07:05)
[2023-04-25 07:35] VITALS: BP 124/58; TEMP 97.6; O2SAT 95
[2023-04-25] MEDS ORDERED: LEVO1TAB40 PO (08:24)
[2023-04-25] MEDS ORDERED: BACI1CAP PO (08:25)
[2023-04-25] MEDS ORDERED: ALBU8.5H INH (08:30)
[2023-04-25] MEDS ORDERED: SYMB16INH INH (08:30)
[2023-04-25] MEDS ORDERED: TIOT18INH INH (08:30)
[2023-04-25] MEDS ORDERED: SELF1KIT MC (08:30)
[2023-04-25] MEDS ORDERED: PRED20TA PO (08:30)
[2023-04-25] MEDS: ASPIRIN 81MG CHEW TABLET PEG SCH (09:51)
[2023-04-25] MEDS: FAMOTIDINE 20 MG TAB PO SCH (09:51)
[2023-04-25] MEDS: APIXABAN 5 MG TAB (ELIQUIS) PO SCH (09:51)
[2023-04-26] MEDS ORDERED: MAGN400T33 PO (10:29)
== END 2023-04-25 14:36 | disposition home health service (06) | DRG 65 ==
LOC: M ED 14:42 → M ED INP 22:15 → ENRESERV 22:46 → M PCU 23:30
PROVIDERS: ADMIT Internal Medicine; ATTEND General Practice
DX: I63.9 Cerebral infarction, unspecified (principal); N17.9 Acute kidney failure, unspecified; C34.90 Malignant neoplasm of unspecified part of unspecified bronchus or lung; E87.1 Hypo-osmolality and hyponatremia; I48.92 Unspecified atrial flutter; E87.20 Acidosis, unspecified; G45.4 Transient global amnesia; I48.0 Paroxysmal atrial fibrillation; I10 Essential (primary) hypertension; J44.9 Chronic obstructive pulmonary disease, unspecified; D72.829 Elevated white blood cell count, unspecified; Z92.21 Personal history of antineoplastic chemotherapy; Z92.3 Personal history of irradiation; J84.10 Pulmonary fibrosis, unspecified; K21.9 Gastro-esophageal reflux disease without esophagitis; E83.42 Hypomagnesemia; Z79.01 Long term (current) use of anticoagulants; Z88.5 Allergy status to narcotic agent; Z88.8 Allergy status to other drugs, medicaments and biological substances; Z79.899 Other long term (current) drug therapy; Z79.52 Long term (current) use of systemic steroids; Z66 Do not resuscitate

== ENCOUNTER → 2023-04-29 | Outpatient (RCR) | payer OTHER ==
[2023-04-20 14:15] LABS: BASO # 0.4 10^3/uL (0.0-0.2); BASO % 1.5 % (0.0-1.0); HEMATOCRIT 35.2 % (36.0-47.0); HEMOGLOBIN 11.6 g/dl (12.0-15.5); LYMPH # 1.5 10^3/uL (1.5-5.0); LYMPH % 6.1 % (24.0-44.0); MEAN CORPUSCULAR HEMOGLOBIN 28.1 pg (27.0-33.0); MEAN CORPUSCULAR VOLUME 85.2 fl (80.0-96.0); MONO % 7.6 % (2.0-8.0); NEUTROPHILS % 73.9 % (36.0-66.0); PLATELET COUNT, AUTOMATED 431 10^3/uL (150-450); RED BLOOD COUNT 4.13 10^6/uL (4.00-5.40); WHITE BLOOD COUNT 24.4 10^3/uL (4.0-10.0)
[2023-04-20 14:18] LABS: MONO # 1.9 10^3/uL (0.0-0.8)
[2023-04-20 14:39] LABS: ALBUMIN 2.3 G/DL (3.2-5.2); BILIRUBIN,TOTAL 0.7 MG/DL (0.3-1.2); CALCIUM LEVEL 8.1 MG/DL (8.3-10.6); CREATININE FOR GFR 1.4 MG/DL (0.55-1.30); GLOMERULAR FILTRATION RATE 38.7 (>39); POTASSIUM SERUM 4.1 MMOL/L (3.5-5.1); TOTAL PROTEIN 5.6 G/DL (5.7-8.2)
[~2023-04-29] MED LIST changes: +AMLO1TAB24 PO; +BACI1CAP PO; +FILGRASTIM-SNDZ 300MCG 0.5ML SYR (ZARXIO)**SC ADMINISTRATION ONLY SC SCH; +FOSAPREPITANT 150 MG in NS 245 ML IV SCH; +LEVO1TAB40 PO; +METO50TA7 PO; +NS 1,000 ML IV SCH; +PALONOSETRON 0.25MG/5ML VIAL (ALOXI) (FOR ONCOLOGY) IV SCH; +PROCHLORPERAZINE 5MG TAB PO SCH; +SELF1KIT MC; +SYMB16INH INH; +TIOT18INH INH; +dexAMETHasone 4 MG TAB PO SCH
== END ==
LOC: M ONCR 03-31 12:54
PROVIDERS: ATTEND General Practice
DX: C34.32 Malignant neoplasm of lower lobe, left bronchus or lung (principal)
CPT/HCPCS: 77293; 77300; 77336; 77338; 77386; Q5101

== ENCOUNTER 2023-05-04 11:09 | Inpatient (IN) | payer OTHER ==
[~2023-05-04] VITALS: Ht 152.4 cm; Wt 81.3 kg
[~2023-05-04 11:09] MED LIST changes: -AMLO1TAB24 PO; -FILGRASTIM-SNDZ 300MCG 0.5ML SYR (ZARXIO)**SC ADMINISTRATION ONLY SC SCH; -FOSAPREPITANT 150 MG in NS 245 ML IV SCH; -NS 1,000 ML IV SCH; -PALONOSETRON 0.25MG/5ML VIAL (ALOXI) (FOR ONCOLOGY) IV SCH; -PROCHLORPERAZINE 5MG TAB PO SCH; -dexAMETHasone 4 MG TAB PO SCH
[2023-05-04] MEDS ORDERED: METOPROLOL TART 50 MG TAB PO ONE (11:40)
[2023-05-04] MEDS: METOPROLOL 5 MG/5 ML VIAL IV SCH ×6 (11:43→14:17)
[2023-05-04 11:54] LABS: BASO % 0.2 % (0.0-1.0); EOS # 0.4 10^3/uL (0.0-0.5); HEMATOCRIT 33.9 % (36.0-47.0); HEMOGLOBIN 10.8 g/dl (12.0-15.5); LYMPH # 0.4 10^3/uL (1.5-5.0); LYMPH % 2.7 % (24.0-44.0); MEAN CORPUSCULAR HEMOGLOBIN 28.5 pg (27.0-33.0); MEAN CORPUSCULAR HGB CONC 31.9 g/dl (32.0-36.5); MEAN CORPUSCULAR VOLUME 89.4 fl (80.0-96.0); MONO # 0.6 10^3/uL (0.0-0.8); MONO % 4.6 % (2.0-8.0); NEUTROPHILS # 12.2 10^3/uL (1.5-8.5); NEUTROPHILS % 88.3 % (36.0-66.0); PLATELET COUNT, AUTOMATED 147 10^3/uL (150-450); RED BLOOD COUNT 3.79 10^6/uL (4.00-5.40); WHITE BLOOD COUNT 13.8 10^3/uL (4.0-10.0)
[2023-05-04 12:21] LABS: BLOOD UREA NITROGEN 18 MG/DL (9-23); CALCIUM LEVEL 8.7 MG/DL (8.3-10.6); CARBON DIOXIDE LEVEL 24 MMOL/L (20-31); CHLORIDE LEVEL 103 MMOL/L (98-107); GLOMERULAR FILTRATION RATE > 60.0 (>39); GLUCOSE, FASTING 119 MG/DL (74-106); POTASSIUM SERUM 4.2 MMOL/L (3.5-5.1); SODIUM LEVEL 136 MMOL/L (136-145)
[2023-05-04] MEDS ORDERED: DIGOXIN INJ 0.5 MG/2 ML AMP IV ONE ×2 (12:35→14:35)
[2023-05-04] MEDS ORDERED: MED REC IN PROGRESS XX SCH (16:20)
[2023-05-04] MEDS ORDERED: LISI20TA33 PO (16:46)
[2023-05-04] MEDS ORDERED: DIGO0.253 PO (16:46)
[2023-05-04] MEDS ORDERED: HYDR-3490 PO (16:46)
[2023-05-04] MEDS ORDERED: METO50TA7 PO (16:46)
[2023-05-04] MEDS ORDERED: AMLO1TAB24 PO (16:46)
[2023-05-04] MEDS ORDERED: HOME MED LIST COMPLETE! XX SCH (16:50)
[2023-05-04 17:16] LABS: MAGNESIUM LEVEL 1.2 MG/DL (1.8-2.4)
[2023-05-04] MEDS ORDERED: LEVALBUTEROL HFA 45MCG/ACT 15GM INHALER INH PRN (18:00)
[2023-05-04 18:11] VITALS: BP 119/90; TEMP 98.5; O2SAT 98
[2023-05-04] MEDS: MAG SULF 1GM/100ML (MAG RUN) 1 GM in IV 1 EA IV SCH ×2 (18:25→19:41)
[2023-05-04] MEDS: METOPROLOL TART 25 MG TABLET PO SCH (18:25)
[2023-05-04] MEDS: LACTOBACILLUS ACIDOPHILUS CAP (BACID) PO SCH (18:25)
[2023-05-04 18:52] LABS: THYROID STIMULATING HORMONE 7.556 uIU/ML (0.55-4.78)
[2023-05-04 18:53] LABS: FREE T4 1.45 NG/DL (0.89-1.76)
[2023-05-04] MEDS: SYMBICORT 160/4.5MCG INHALER 6GM INH SCH (19:46)
[2023-05-04 20:00] VITALS: BP 118/66; TEMP 96.7; TEMP 98.2; O2SAT 95
[2023-05-04] MEDS: DIGOXIN INJ 0.5 MG/2 ML AMP IV SCH (22:21)
[2023-05-04] MEDS: VITAMIN D 1,000 INTERNATIONAL UNITS TABLET PO SCH (22:21)
[2023-05-04] MEDS: APIXABAN 5 MG TAB (ELIQUIS) PO SCH (22:22)
[2023-05-04 23:55] VITALS: BP 123/60; TEMP 97.2; O2SAT 94
[2023-05-05] VITALS (8 sets, daily range): BP systolic 90–125; BP diastolic 56–75; TEMP 96.3–98.3; O2SAT 93–96
[2023-05-05] MEDS: METOPROLOL TART 25 MG TABLET PO SCH (00:57)
[2023-05-05] MEDS: DIGOXIN INJ 0.5 MG/2 ML AMP IV SCH (03:56)
[2023-05-05 05:49] LABS: BASO % 0.2 % (0.0-1.0); EOS % 10.6 % (0.0-3.0); HEMATOCRIT 31.8 % (36.0-47.0); HEMOGLOBIN 10.1 g/dl (12.0-15.5); LYMPH # 0.3 10^3/uL (1.5-5.0); LYMPH % 2.8 % (24.0-44.0); MEAN CORPUSCULAR HEMOGLOBIN 28.2 pg (27.0-33.0); MEAN CORPUSCULAR HGB CONC 31.8 g/dl (32.0-36.5); MEAN CORPUSCULAR VOLUME 88.8 fl (80.0-96.0); MONO # 0.3 10^3/uL (0.0-0.8); MONO % 3.6 % (2.0-8.0); NEUTROPHILS # 7.3 10^3/uL (1.5-8.5); NEUTROPHILS % 81.6 % (36.0-66.0); RED BLOOD COUNT 3.58 10^6/uL (4.00-5.40)
[2023-05-05 05:58] LABS: PLATELET COUNT, AUTOMATED 86 10^3/uL (150-450)
[2023-05-05 07:00] LABS: BLOOD UREA NITROGEN 20 MG/DL (9-23); CALCIUM LEVEL 7.8 MG/DL (8.3-10.6); CARBON DIOXIDE LEVEL 27 MMOL/L (20-31); CHLORIDE LEVEL 104 MMOL/L (98-107); CREATININE FOR GFR 0.92 MG/DL (0.55-1.30); GLOMERULAR FILTRATION RATE > 60.0 (>39); GLUCOSE, FASTING 79 MG/DL (74-106); MAGNESIUM LEVEL 1.8 MG/DL (1.8-2.4); POTASSIUM SERUM 4.2 MMOL/L (3.5-5.1); SODIUM LEVEL 138 MMOL/L (136-145)
[2023-05-05] MEDS: SYMBICORT 160/4.5MCG INHALER 6GM INH SCH ×2 (07:44→19:56)
[2023-05-05] MEDS: TIOTROPIUM INHALER/CAPSULE (SPIRIVA) INH SCH (07:44)
[2023-05-05] MEDS: LACTOBACILLUS ACIDOPHILUS CAP (BACID) PO SCH ×3 (08:58→18:16)
[2023-05-05] MEDS: APIXABAN 5 MG TAB (ELIQUIS) PO SCH ×2 (08:58→20:10)
[2023-05-05] MEDS: METOPROLOL TART 50 MG TAB PO SCH ×2 (08:58→20:10)
[2023-05-05] MEDS: DIGOXIN 0.125 MG TAB PO SCH (08:58)
[2023-05-05] MEDS: FAMOTIDINE 20 MG TAB PO SCH (08:58)
[2023-05-05] MEDS: VITAMIN D 1,000 INTERNATIONAL UNITS TABLET PO SCH (20:10)
[2023-05-06] VITALS (7 sets, daily range): BP systolic 88–122; BP diastolic 50–76; TEMP 96.6–98.5; O2SAT 95–97
[2023-05-06] MEDS ORDERED: NS 1,000 ML IV ONE
[2023-05-06 06:27] LABS: BASO % 0.3 % (0.0-1.0); EOS # 0.8 10^3/uL (0.0-0.5); EOS % 9.3 % (0.0-3.0); HEMATOCRIT 33.3 % (36.0-47.0); HEMOGLOBIN 10.6 g/dl (12.0-15.5); LYMPH # 0.2 10^3/uL (1.5-5.0); LYMPH % 2.1 % (24.0-44.0); MEAN CORPUSCULAR HEMOGLOBIN 28.8 pg (27.0-33.0); MEAN CORPUSCULAR HGB CONC 31.8 g/dl (32.0-36.5); MEAN CORPUSCULAR VOLUME 90.5 fl (80.0-96.0); MONO # 0.4 10^3/uL (0.0-0.8); MONO % 3.9 % (2.0-8.0); NEUTROPHILS # 7.5 10^3/uL (1.5-8.5); NEUTROPHILS % 83.4 % (36.0-66.0); RED BLOOD COUNT 3.68 10^6/uL (4.00-5.40)
[2023-05-06 06:35] LABS: BLOOD UREA NITROGEN 20 MG/DL (9-23); CALCIUM LEVEL 8.3 MG/DL (8.3-10.6); CARBON DIOXIDE LEVEL 26 MMOL/L (20-31); CHLORIDE LEVEL 104 MMOL/L (98-107); CREATININE FOR GFR 0.93 MG/DL (0.55-1.30); DIGOXIN LEVEL 2.5 NG/ML (0.8-2.0); GLOMERULAR FILTRATION RATE > 60.0 (>39); GLUCOSE, FASTING 88 MG/DL (74-106); MAGNESIUM LEVEL 1.5 MG/DL (1.8-2.4); POTASSIUM SERUM 3.8 MMOL/L (3.5-5.1); SODIUM LEVEL 136 MMOL/L (136-145)
[2023-05-06 07:09] LABS: PLATELET COUNT, AUTOMATED 79 10^3/uL (150-450)
[2023-05-06] MEDS: TIOTROPIUM INHALER/CAPSULE (SPIRIVA) INH SCH (08:02)
[2023-05-06] MEDS: SYMBICORT 160/4.5MCG INHALER 6GM INH SCH ×2 (08:03→20:04)
[2023-05-06] MEDS: METOPROLOL TART 50 MG TAB PO SCH (09:42)
[2023-05-06] MEDS: FAMOTIDINE 20 MG TAB PO SCH (09:48)
[2023-05-06] MEDS: APIXABAN 5 MG TAB (ELIQUIS) PO SCH ×2 (09:48→20:18)
[2023-05-06] MEDS: MAG SULF 1GM/100ML (MAG RUN) 1 GM in IV 1 EA IV SCH ×4 (09:49→12:01)
[2023-05-06] MEDS: LACTOBACILLUS ACIDOPHILUS CAP (BACID) PO SCH ×3 (09:55→17:07)
[2023-05-06] MEDS ORDERED: guaiFENesin SYRUP 200MG 10ML UDC PO PRN (13:30)
[2023-05-06] MEDS: predniSONE 20 MG TAB PO SCH (17:07)
[2023-05-06] MEDS ORDERED: FUROSEMIDE 20MG/2ML VIAL IV ONE (19:30)
[2023-05-06] MEDS ORDERED: AMIODARONE HCL 150 MG in IV 1 EA IV ONE (19:40)
[2023-05-06] MEDS: IPRATROPIUM 0.02% SOLN 0.5MG 2.5ML NEB INH SCH (20:04)
[2023-05-06] MEDS: LEVALBUTEROL HFA 45MCG/ACT 15GM INHALER INH SCH (20:05)
[2023-05-06] MEDS: MAGNESIUM OXIDE 400MG TAB (MAG-OX) PO SCH (20:18)
[2023-05-06] MEDS: VITAMIN D 1,000 INTERNATIONAL UNITS TABLET PO SCH (20:18)
[2023-05-06] MEDS: AMIODARONE 200 MG TAB (PACERONE) PO SCH (20:22)
[2023-05-06] MEDS: METOPROLOL TART 25 MG TABLET PO SCH (20:23)
[2023-05-07 00:35] VITALS: BP 98/50; TEMP 97.1; O2SAT 95
[2023-05-07] MEDS: LEVALBUTEROL HFA 45MCG/ACT 15GM INHALER INH SCH ×2 (02:49→07:49)
[2023-05-07] MEDS: IPRATROPIUM 0.02% SOLN 0.5MG 2.5ML NEB INH SCH ×2 (02:49→07:48)
[2023-05-07 04:10] VITALS: BP 127/74; TEMP 97.6; O2SAT 94
[2023-05-07 05:12] LABS: BASO % 0.1 % (0.0-1.0); EOS # 0.1 10^3/uL (0.0-0.5); EOS % 1.1 % (0.0-3.0); HEMATOCRIT 28.7 % (36.0-47.0); HEMOGLOBIN 9.2 g/dl (12.0-15.5); LYMPH # 0.2 10^3/uL (1.5-5.0); LYMPH % 2.4 % (24.0-44.0); MEAN CORPUSCULAR HEMOGLOBIN 28.5 pg (27.0-33.0); MEAN CORPUSCULAR HGB CONC 32.1 g/dl (32.0-36.5); MEAN CORPUSCULAR VOLUME 88.9 fl (80.0-96.0); MONO # 0.2 10^3/uL (0.0-0.8); MONO % 2.8 % (2.0-8.0); NEUTROPHILS % 92.8 % (36.0-66.0); RED BLOOD COUNT 3.23 10^6/uL (4.00-5.40); WHITE BLOOD COUNT 7.6 10^3/uL (4.0-10.0)
[2023-05-07 05:15] LABS: PLATELET COUNT, AUTOMATED 60 10^3/uL (150-450)
[2023-05-07 05:34] LABS: BLOOD UREA NITROGEN 25 MG/DL (9-23); CALCIUM LEVEL 8.1 MG/DL (8.3-10.6); CARBON DIOXIDE LEVEL 28 MMOL/L (20-31); CHLORIDE LEVEL 102 MMOL/L (98-107); CREATININE FOR GFR 0.92 MG/DL (0.55-1.30); GLOMERULAR FILTRATION RATE > 60.0 (>39); GLUCOSE, FASTING 143 MG/DL (74-106); MAGNESIUM LEVEL 1.8 MG/DL (1.8-2.4); SODIUM LEVEL 135 MMOL/L (136-145)
[2023-05-07 06:23] VITALS: BP 127/74
[2023-05-07] MEDS: METOPROLOL TART 25 MG TABLET PO SCH ×2 (06:23)
[2023-05-07] MEDS: SYMBICORT 160/4.5MCG INHALER 6GM INH SCH (07:48)
[2023-05-07 07:51] VITALS: BP 113/61; TEMP 97.6; O2SAT 96
[2023-05-07] MEDS ORDERED: AMIO200T49 PO (07:59)
[2023-05-07] MEDS ORDERED: GUAI100S51 PO (07:59)
[2023-05-07] MEDS ORDERED: FURO20TA2 PO (07:59)
[2023-05-07] MEDS ORDERED: POTA10CA60 PO (07:59)
[2023-05-07] MEDS ORDERED: MAGN400T2 PO (07:59)
[2023-05-07] MEDS ORDERED: TIOTROPIUM INHALER/CAPSULE (SPIRIVA) INH SCH (08:00)
[2023-05-07] MEDS ORDERED: METO1TAB87 PO (08:00)
[2023-05-07] MEDS: FAMOTIDINE 20 MG TAB PO SCH (08:04)
[2023-05-07] MEDS: MAGNESIUM OXIDE 400MG TAB (MAG-OX) PO SCH (08:04)
[2023-05-07] MEDS: APIXABAN 5 MG TAB (ELIQUIS) PO SCH (08:04)
[2023-05-07] MEDS: predniSONE 20 MG TAB PO SCH (08:05)
[2023-05-07] MEDS: LACTOBACILLUS ACIDOPHILUS CAP (BACID) PO SCH (08:05)
[2023-05-07] MEDS: AMIODARONE 200 MG TAB (PACERONE) PO SCH (08:05)
[2023-05-07 08:31] LABS: ALBUMIN 2.1 G/DL (3.2-5.2); ALKALINE PHOSPHATASE 78 U/L (46-116); ALT/SGPT 25 U/L (7.0-40); AST/SGOT 14 U/L (<34); BILIRUBIN,DIRECT 0.2 MG/DL (<0.4); BILIRUBIN,TOTAL 0.5 MG/DL (0.3-1.2); TOTAL PROTEIN 4.5 G/DL (5.7-8.2)
[2023-05-07] MEDS ORDERED: FUROSEMIDE 20 MG TAB PO SCH (09:00)
[2023-05-07] MEDS: DIGOXIN 0.125 MG TAB PO SCH (09:22)
== END 2023-05-07 11:29 | disposition home health service (06) | DRG 309 ==
LOC: EDBD 11:09 → M ED 11:09 → M ED INP 11:10 → ENRESERV 16:56 → M PCU 17:57 → OBSVTOIN 05-05 15:39
PROVIDERS: ADMIT Internal Medicine; ATTEND Internal Medicine
DX: I48.0 Paroxysmal atrial fibrillation (principal); C34.90 Malignant neoplasm of unspecified part of unspecified bronchus or lung; I50.32 Chronic diastolic (congestive) heart failure; J44.9 Chronic obstructive pulmonary disease, unspecified; I11.0 Hypertensive heart disease with heart failure; E03.9 Hypothyroidism, unspecified; K21.9 Gastro-esophageal reflux disease without esophagitis; E83.42 Hypomagnesemia; Z92.21 Personal history of antineoplastic chemotherapy; Z92.3 Personal history of irradiation; Z86.73 Personal history of transient ischemic attack (TIA), and cerebral infarction without residual deficits; J84.10 Pulmonary fibrosis, unspecified; Z88.5 Allergy status to narcotic agent; Z88.8 Allergy status to other drugs, medicaments and biological substances; Z79.899 Other long term (current) drug therapy; Z79.01 Long term (current) use of anticoagulants; Z66 Do not resuscitate

== ENCOUNTER → 2023-05-10 | Outpatient (REF) | payer OTHER ==
[~2023-05-10] MED LIST changes: +AMIO200T49 PO; +AMLO1TAB24 PO; +FURO20TA2 PO; +GUAI100L55 PO; +GUAI100S51 PO; -LIDO1CRE42 TOP; +LIDO30CR18 TOP; +METO1TAB87 PO; +POTA10CA60 PO
[2023-05-10 12:35] LABS: CALCIUM LEVEL 8.5 MG/DL (8.3-10.6); CREATININE FOR GFR 0.99 MG/DL (0.55-1.30); GLOMERULAR FILTRATION RATE 57.8 (>39); MAGNESIUM LEVEL 1.4 MG/DL (1.8-2.4); POTASSIUM SERUM 4.1 MMOL/L (3.5-5.1)
== END ==
LOC: M LAB REF 11:27
PROVIDERS: ATTEND Internal Medicine
DX: E83.42 Hypomagnesemia (principal); I95.9 Hypotension, unspecified

== ENCOUNTER → 2023-05-17 | Outpatient (REF) | payer OTHER ==
[~2023-05-17] MED LIST changes: +HYDR5SYP11 PO
[2023-05-17 15:19] LABS: CALCIUM LEVEL 7.7 MG/DL (8.3-10.6); CREATININE FOR GFR 1.04 MG/DL (0.55-1.30); GLOMERULAR FILTRATION RATE 54.6 (>39); MAGNESIUM LEVEL 1.5 MG/DL (1.8-2.4); POTASSIUM SERUM 3.9 MMOL/L (3.5-5.1)
== END ==
LOC: M LAB REF 14:37
PROVIDERS: ATTEND Family Medicine
DX: E83.42 Hypomagnesemia (principal); I10 Essential (primary) hypertension

== ENCOUNTER 2023-05-27 12:56 | Outpatient (RCR) | payer OTHER ==
[~2023-05-27 12:56] MED LIST changes: +PROC5TAB57 PO
[2023-05-27] MEDS ORDERED: AMLO25TA PO (13:46)
[2023-05-27] MEDS ORDERED: METO1TAB87 PO (13:46)
== END 2023-05-30 ==
LOC: M ONCR 12:56
PROVIDERS: ATTEND General Practice
DX: C34.32 Malignant neoplasm of lower lobe, left bronchus or lung (principal)

== ENCOUNTER 2023-06-02 10:39 | Observation (INO) | payer OTHER ==
[~2023-06-02] VITALS: Ht 152.4 cm; Wt 77.3 kg
[~2023-06-02 10:39] MED LIST changes: +AMLO25TA PO
[2023-06-02] MEDS ORDERED: NS 1,000 ML IV ONE (11:15)
[2023-06-02 11:18] LABS: HEMATOCRIT 34.7 % (36.0-47.0); HEMOGLOBIN 11.7 g/dl (12.0-15.5); MEAN CORPUSCULAR HGB CONC 33.7 g/dl (32.0-36.5); PLATELET COUNT, AUTOMATED 273 10^3/uL (150-450); WHITE BLOOD COUNT 11.5 10^3/uL (4.0-10.0)
[2023-06-02 11:46] LABS: ALBUMIN 2.1 G/DL (3.2-5.2); BILIRUBIN,DIRECT 0.5 MG/DL (<0.4); BILIRUBIN,TOTAL 0.9 MG/DL (0.3-1.2); CALCIUM LEVEL 7.9 MG/DL (8.3-10.6); CREATININE FOR GFR 1.19 MG/DL (0.55-1.30); GLOMERULAR FILTRATION RATE 46.7 (>39); POTASSIUM SERUM 3.3 MMOL/L (3.5-5.1); TOTAL PROTEIN 4.7 G/DL (5.7-8.2)
[2023-06-02 12:28] LABS: ATYPICAL LYMPH 9 % (0-5); EOSINOPHILS 1 % (0-3); LYMPHOCYTES 5 % (16-44); MONOCYTES 5 % (0-5); NEUTROPHILS 75 % (28-66)
[2023-06-02] MEDS ORDERED: DIGOXIN INJ 0.5 MG/2 ML AMP IV STA (12:28)
[2023-06-02 12:29] LABS: PLATELET ESTIMATE NORMAL (NORMAL)
[2023-06-02] MEDS ORDERED: ISOVUE-370 76% 100ML VIAL As Ordered ONE (13:08)
[2023-06-02] MEDS ORDERED: DIGOXIN INJ 0.5 MG/2 ML AMP IV ONE ×2 (14:05→20:00)
[2023-06-02] MEDS ORDERED: HEPARIN SOD (PORCINE) 5000UNITS/ML 1ML VIAL/SYRINGE SC SCH (17:10)
[2023-06-02] MEDS ORDERED: ACETAMINOPHEN TAB 650MG DOSE (2X325MG) PO PRN (17:10)
[2023-06-02] MEDS ORDERED: HEPARIN SOD (PORCINE) 5000UNITS/ML 1ML VIAL/SYRINGE SQ SCH (17:25)
[2023-06-02] MEDS ORDERED: POTASSIUM CHLORIDE 10MEQ SR TABLET PO ONE (18:00)
[2023-06-02] MEDS ORDERED: METO50TA7 PO (19:22)
[2023-06-02] MEDS ORDERED: AMLO1TAB24 PO (19:22)
[2023-06-02] MEDS ORDERED: med rec comment (19:22)
[2023-06-02] MEDS ORDERED: LISI20TA33 PO (19:25)
[2023-06-02] MEDS ORDERED: HYDR-3490 PO (19:25)
[2023-06-02] MEDS ORDERED: ELIQ5TAB PO (19:25)
[2023-06-02] MEDS ORDERED: RISATAB3 PO (19:26)
[2023-06-02] MEDS ORDERED: HOME MED LIST COMPLETE! XX SCH (19:30)
[2023-06-02] MEDS: NS 1,000 ML IV SCH (20:42)
[2023-06-02 21:50] VITALS: BP 113/75; TEMP 98.1; O2SAT 90
[2023-06-02] MEDS: ONDANSETRON 4MG 2ML VIAL IV PRN (22:06)
[2023-06-03] MEDS: AMIODARONE 200 MG TAB (PACERONE) PO SCH ×2 (00:11→08:59)
[2023-06-03] MEDS ORDERED: IPRATROPIUM 0.5MG/ALBUTEROL 2.5MG INH SOL UD 3ML (DUONEB) NEB PRN (00:35)
[2023-06-03] MEDS: LEVALBUTEROL 1.25MG 0.5ML CONCENTRATE NEB INH PRN ×2 (00:56→09:16)
[2023-06-03] MEDS ORDERED: PROCHLORPERAZINE 5MG TAB PO PRN (01:00)
[2023-06-03 05:10] VITALS: BP 104/44; TEMP 98.1; O2SAT 92
[2023-06-03] MEDS: ONDANSETRON 4MG 2ML VIAL IV PRN (05:14)
[2023-06-03] MEDS: NS 1,000 ML IV SCH (05:15)
[2023-06-03 06:10] LABS: HEMATOCRIT 31.5 % (36.0-47.0); HEMOGLOBIN 10.4 g/dl (12.0-15.5); MEAN CORPUSCULAR HEMOGLOBIN 30.4 pg (27.0-33.0); MEAN CORPUSCULAR VOLUME 92.1 fl (80.0-96.0); PLATELET COUNT, AUTOMATED 247 10^3/uL (150-450); RED BLOOD COUNT 3.42 10^6/uL (4.00-5.40); WHITE BLOOD COUNT 10.4 10^3/uL (4.0-10.0)
[2023-06-03 06:48] LABS: CALCIUM LEVEL 7.2 MG/DL (8.3-10.6); CREATININE FOR GFR 1.18 MG/DL (0.55-1.30); GLOMERULAR FILTRATION RATE 47.2 (>39); POTASSIUM SERUM 3.9 MMOL/L (3.5-5.1)
[2023-06-03] MEDS ORDERED: TIOTROPIUM INHALER/CAPSULE (SPIRIVA) INH SCH (08:00)
[2023-06-03] MEDS: ADVAIR HFA 115/21MCG INHALER INH SCH ×2 (08:22→20:00)
[2023-06-03] MEDS ORDERED: APIXABAN 5 MG TAB (ELIQUIS) PO SCH (09:00)
[2023-06-03] MEDS ORDERED: FAMOTIDINE 20 MG TAB PO SCH (09:00)
[2023-06-03] MEDS ORDERED: MAGNESIUM OXIDE 400MG TAB (MAG-OX) PO SCH (09:00)
[2023-06-03 09:27] LABS: MAGNESIUM LEVEL 1.5 MG/DL (1.8-2.4)
[2023-06-03] MEDS ORDERED: ONDANSETRON 4MG ORAL DISINTEGRATING TAB PO PRN (12:20)
[2023-06-03] MEDS ORDERED: HYOSCYAMINE SULFATE 0.125 MG SUBL TABLET PO PRN (12:20)
[2023-06-03] MEDS ORDERED: SCOPOLAMINE 1MG TRANSDERMAL PATCH TOP PRN (12:20)
[2023-06-03] MEDS ORDERED: MORPHINE 10MG/0.5ML ORAL CONCENTRATE SOLUTION U/D SL PRN (12:20)
[2023-06-03] MEDS ORDERED: guaiFENesin 200 MG TAB PO PRN (12:20)
[2023-06-03] MEDS: LORazepam 1 MG TAB PO PRN ×2 (16:54→19:44)
[2023-06-03] MEDS ORDERED: MORPHINE 2 MG/ML 1ML VIAL IV PRN (20:00)
[2023-06-03] MEDS ORDERED: LORazepam 2 MG/ML 1ML VIAL IV PRN (20:00)
== END 2023-06-04 00:25 | disposition expired ==
LOC: M ED 10:39 → EDBD 10:39 → M ED INP 17:10 → ENRESERVTM 20:20 → ENRESERVDT 20:20 → M MSPAV 21:38
PROVIDERS: ADMIT Family Medicine; ATTEND Family Medicine
DX: I48.0 Paroxysmal atrial fibrillation (principal); I95.9 Hypotension, unspecified; R11.2 Nausea with vomiting, unspecified; R19.7 Diarrhea, unspecified; C34.32 Malignant neoplasm of lower lobe, left bronchus or lung; Z79.899 Other long term (current) drug therapy; Z79.01 Long term (current) use of anticoagulants; J44.9 Chronic obstructive pulmonary disease, unspecified; Z87.891 Personal history of nicotine dependence; Z86.73 Personal history of transient ischemic attack (TIA), and cerebral infarction without residual deficits; I10 Essential (primary) hypertension; E03.9 Hypothyroidism, unspecified; Z88.8 Allergy status to other drugs, medicaments and biological substances; Z88.5 Allergy status to narcotic agent
CPT/HCPCS: 36415; 71045; 74177; 80048; 80076; 81001; 82150; 83605; 83690; 83735; 85025; 85027; 87040; 87077; 87186; 93005; 93041; 94640; 96361; 96374; 96375; 96376; 99285; G0378; J1160; J2060; J2405; Q9967